=== PATIENT | female | born 1925 | race Hispanic/Latino ===

== ENCOUNTER 2016-08-27 10:21 | Day surgery (SDC) | payer OTHER ==
[~2016-08-27] VITALS: Ht 121.9 cm; Wt 55.0 kg
[~2016-08-27 10:21] MED LIST: ACTOS30 MG PO; ADVAIR HFA120 INHALA; ADVAIR HFA120 INHALA IH; ALDACTONE25 MG PO; Advair HFA 115/21 IH; Ambien PO; BISACODYL SUPP10 MG PR; CILOSTAZOL50 MG PO; Colace PO; DOCUSATE SODIU100 MG PO; DULERA 100 MCG/13 GM IH; FEOSOL325 MG PO; FERROUS SULFAT325 MG PO; FUROSEMIDE20 MG PO; Feosol PO; HYDROCODON-ACE1 EAC7 PO; IRON325 MG PO; LASIX20 MG PO; LASIX40 MG PO; LISINOPRIL10 MG PO; LOPRESSOR50 MG PO; LOVENOX30 MG/0.3 SC; Lasix PO; Lopressor PO; Lovenox SC; MELATONIN5 M1 PO; METOPROLOL TART50 MG PO; MIRALAX17 GM PO; MYLICON,MYLANTA80 MG PO; NEURONTIN100 MG PO; NEURONTIN300 MG PO; NITROSTAT0.4 MG SL; NORCO 5/3251 TABLET PO; NYATA15 GM TP; Nitrostat,NitroQuick SL; PREDNISONE20 MG PO; PRILOSEC20 MG PO; PROVENTIL,2.5 MG/3 M IH; Protonix PO; Robitussin, Organidi PO; Rocephin IV; SENNA PLUS TAB1 EACH PO; SPIRIVA1 INHALATI IH; TAMIFLU75 MG PO; Tylenol Regular Stre PO; ULTRAM50 MG PO; VALTREX50 MG/ML PO; VOLTAREN 1% GE100 GM TP; XOPENEX1.25 MG/3 IH; Xopenex IH; Zestril,Prinivil PO; predniSONE PO
[2016-08-27 11:11] LABS: POINT-OF-CARE METER ID UU14174212
[2016-08-27 11:49] VITALS: BP 138/76
[2016-08-27 12:18] LABS: METH RESISTANT S AUREUS PCR POSITIVE (NEGATIVE)
[2016-08-27 12:19] LABS: PROBE CHECK PASS
[2016-08-27 15:00] VITALS: BP 119/68
[2016-08-27 15:58] VITALS: BP 131/92
== END 2016-08-27 16:00 ==
LOC: SDC 10:21 → EDSTATUS 11:00 → 2SOUTH 11:00 → SDC 11:05
PROVIDERS: Podiatrist Foot & Ankle Surgery
PROC: 0Y6U0Z0 Detachment at Left 3rd Toe, Complete, Open Approach (ICD-10-PCS; principal; 2016-08-27)
DX: E11.69 Type 2 diabetes mellitus with other specified complication (principal); M86.672 Other chronic osteomyelitis, left ankle and foot; E11.621 Type 2 diabetes mellitus with foot ulcer; L97.529 Non-pressure chronic ulcer of other part of left foot with unspecified severity
CPT/HCPCS: 82948; 87070; 87075; 87205; 87641; 88305; 88311; J0690; J2710; J7050; S0020

== ENCOUNTER 2017-01-10 16:38 | Emergency (ER) | payer OTHER ==
[~2017-01-10] VITALS: Ht 147.3 cm; Wt 50.8 kg
[2017-01-10 17:47] LABS: BASOPHIL COUNT 0.1 K/uL (0-0.1); EOSINOPHIL (%) 1.4 % (0-5); EOSINOPHIL COUNT 0.1 K/uL (0-0.3); HEMATOCRIT 38.5 % (36.0-46.0); IMMATURE GRANULOCYTE (%) 0.3 % (0.0-0.7); INSTRUMENT ABS NEUTROPHIL CT 5.1 K/uL; LYMPHOCYTE COUNT 1.2 K/uL (1.0-2.8); MCH 30.4 PG (29.0-34.0); MCHC 31.9 G/DL (30.0-36.0); MCV 95.3 FL (83-99); MEAN PLAT.VOLUME 11.1 uM^3 (9.5-12.4); MONOCYTE (%) 8.2 % (3-12); MONOCYTE COUNT 0.6 K/uL (0-0.8); NEUTROPHIL (%) 72.1 % (45-76); NEUTROPHIL COUNT 5.1 K/uL (1.8-6.4); PLATELET COUNT 165 K/uL (156-360); RBC DIS.WIDTH-CV 13.6 % (11.8-14.6); RBC DIS.WIDTH-SD 47.7 % (39-53); RED BLOOD COUNT 4.04 M/uL (3.80-5.20); WHITE BLOOD COUNT 7.1 K/uL (4.1-10.2)
[2017-01-10 18:03] LABS: CHLORIDE 102 mEq/L (99-109); POTASSIUM 4.5 mEq/L (3.7-5.4); SODIUM 140 mEq/L (136-147)
[2017-01-10 18:05] LABS: GLUCOSE 106 mg/dL (70-99)
[2017-01-10 18:06] LABS: ANION GAP 13 MEQ/L (2-14)
[2017-01-10 18:08] LABS: GFR ESTIMATE (CALCULATED) 32 mL/min/
[2017-01-10 18:09] LABS: UREA NITROGEN (BUN) 35 mg/dL (9-23)
[2017-01-10 18:11] LABS: TROP-I INTERPRETATION NEGATIVE; TROPONIN-I < 0.01 ng/mL (0.0-0.30)
[2017-01-10] MEDS ORDERED: TYLENOL WITH C1 EACH PO (20:54)
[2017-01-10 23:10] VITALS: BP 104/97
== END 2017-01-10 23:16 ==
LOC: EME → EDBD 16:38 → EME 16:38
PROVIDERS: Emergency Medicine
DX: S40.011A Contusion of right shoulder, initial encounter (principal); M79.604 Pain in right leg; M79.605 Pain in left leg; M25.551 Pain in right hip; W19.XXXA Unspecified fall, initial encounter; M85.811 Other specified disorders of bone density and structure, right shoulder; R42 Dizziness and giddiness; I27.0 Primary pulmonary hypertension; I50.9 Heart failure, unspecified; J45.909 Unspecified asthma, uncomplicated
CPT/HCPCS: 70450; 71010; 71020; 73030; 73200; 73502; 80048; 84484; 85025; 93005; 99281; 99284